=== PATIENT | male | born 1980 | race Caucasian/White ===

== ENCOUNTER 2020-05-29 11:17 | Emergency (ER) | payer OTHER ==
[~2020-05-29] VITALS: Ht 180.3 cm; Wt 114.0 kg
[2020-05-29 11:20] VITALS: BP 160/107
[2020-05-29] MEDS ORDERED: LIDOCAINE 2%/EPI 1:100,000 20 ML VIAL. IJ ONE (12:00)
--- NOTE | 2020-05-29 12:32 | PHYS DOC ---
Past History Past Medical History: No Pertinent History Past Surgical History: Tonsillectomy, Other Additional Past Surgical Histo: SHoulder surgery Additional Smoking Information: dips Alcohol Use: Occasionally Adult General Chief Complaint Chief Complaint: LACERATION/AVULSION [facility] HPI Patient is a 40-year-old male who presents to the emergency room with a laceration to his right chin. Patient was using a new machete and the weeds we re thicker than he thought and it bounced back and hit his leg. He had some bleeding on the scene but did not have any spraying of blood. He denies any numbness. He has been able to walk on it without difficulty. He has never had stitches previously. Tetanus shot was the last 5 years. Review of Systems Review of Systems Complete ROS is negative unless otherwise documented in HPI Current Medications Current Medications Current Medications Medications (Trade) Dose Ordered Sig/Cristopher Start Time Stop Time Status Last Admin Dose Admin Lidocaine/ Epinephrine (Xylocaine 2%-Epi 1:100,000) 20 ml 1X ONCE 05/29/20 12:00 05/29/20 12:14 DC 05/29/20 12:05 20 ML Allergies Allergies Allergies Coded Allergies Type Severity Reaction Last Updated Verified No Known Drug Allergies 05/29/20 No Physical Exam Physical Exam General: Awake, alert, NAD. Well Nourished, well hydrated. Cooperative HEENT: Atraumatic, EOMI, PERRL, airway patent, moist oral mucosa Neck: Supple, trachea midline Respiratory: CTA bilaterally, normal effort, no wheezing/crackles CV: RRR, no murmur, cap refill <2 GI: Soft, nondistended, nontender, no masses MSK: No obvious deformities Skin: Warm, dry. 3 cm laceration to the anterior right bailey 3 inches under the knee Neuro: A&O x3, speech NL, sensory and motor grossly intact, no focal deficits Psych: Normal affect, normal mood, not suicidal or homicidal Current Patient Data Vital Signs Vital Signs Date Time Temp Pulse Resp B/P (MAP) Pulse Ox O2 Delivery O2 Flow Rate FiO2 05/29/20 11:20 98.4 105 20 160/107 (124) 98 Room Air EKG EKG [] Radiology/Procedures Radiology/Procedures [] Heart Score C/O Chest Pain: N/A Risk Factors: Risk Factors: DM, Current or recent (<one month) smoker, HTN, HLP, family history of CAD, obesity. Risk Scores: Risk Factors: DM, Current or recent (<one month) smoker, HTN, HLP, family history of CAD, obesity. Course & Med Decision Making Course & Med Decision Making Pertinent Labs and Imaging studies reviewed. (See chart for details) Patient is a 40-year-old male presents to the emergency room with a superficial laceration to the right bailey. Wound was closed with with minimal difficulty due to the separation of the wound edges. Patient does not have any neurologic defect. Tendons all appear to be intact. Sensation is normal. Tetanus was updated. Patient's test results and vitals while in the ED were fully reviewed and discussed with the patient. Patient is stable and at this time does not need admission to the hospital. We have discussed strict return precautions and the importance of following up with their Primary Care Physician. Patient stated understanding and was given an opportunity to ask any questions. Patient is in agreement with plan. Dragon Disclaimer Dragon Disclaimer This electronic medical record was generated, in whole or in part, using a voice recognition dictation system. Additional Procedures Progress Laceration Repair Performed by: Kelly Crawley MD Consent: obtained verbally from patient. Risks and benefits were discussed prior to consent Time out performed prior to procedure Location: Right bailey Length: 3 cm Foreign bodies: No foreign bodies Tendon involvement: none Neurovascularly intact Local anesthetic: lidocaine with epinephrine Anesthetic total: 3 mls Patient sedated: no Preparation: Patient was prepped and draped in usual sterile fashion. Wound was cleaned extensively with water Amount of clean: Standard Deep stitches: no Skin closure: 3-0 Number of sutures: 7 Technique: simple interrupted Approximation: closed Approximation difficulty: Moderate Patient tolerated procedure well Departure Departure: Impression: Primary Impression: Laceration of skin of right lower leg without complication Disposition: HOME / SELF CARE / HOMELESS Condition: STABLE Referrals: PCP,NO (PCP) Patient Instructions: Laceration Care, Adult Additional Instructions: Sutures to be removed in 7-10 days KELLY CRAWLEY MD May 29, 2020 12:32
[2020-05-29] MEDS ORDERED: DIPH,PERTUSS(ACELL),TET VAC/PF 0.5 ML SYRINGE. VAX IM ONE (13:00)
== END 2020-05-29 13:15 | disposition home or self-care (01) ==
LOC: ER 11:17
DX: S81.811A Laceration without foreign body, right lower leg, initial encounter (principal); W26.0XXA Contact with knife, initial encounter; Y93.89 Activity, other specified; Y92.89 Other specified places as the place of occurrence of the external cause; Y99.8 Other external cause status
CPT/HCPCS: 12002; 90471; 90715; 99283